=== PATIENT | male | born 2000 | race Caucasian/White ===

== ENCOUNTER 2021-12-07 14:51 | Emergency (ER) | payer OTHER, SELFPAY ==
[2021-12-07 15:20] VITALS: BP 148/81; PULSE 89; RESP 20; TEMP 36.1; O2SAT 100; BMI 38.0
--- NOTE | 2021-12-07 15:33 | CRLHL7_ITS ---
For Patients: As a result of the Cures Act, medical imaging exams and procedure reports are released immediately into your electronic medical record. You may view this report before your referring provider. If you have questions, please contact your health care provider. INDICATION: Right ankle injury. TECHNIQUE: Three views of the right ankle. COMPARISON: None. FINDINGS: There is no evidence of acute fracture or malalignment. The ankle mortise is intact. There is no significant soft tissue swelling. The joint spaces are preserved. No suspicious osseous lesion. IMPRESSION: No acute fracture. Dictated by Angela Self MD @ 12/07/2021 4:56:47 PM (Electronically Signed)
--- NOTE | 2021-12-07 16:19 | ED.GENADULT ---
HPI - General Adult General Chief complaint: Extremity Pain/Injury, Lower Stated complaint: Right leg/ankle injury Time Seen by Provider: 12/07/21 15:29 Source: patient Mode of arrival: ambulatory Limitations: no limitations History of Present Illness HPI narrative: 21-year-old male coming in today after injury in football. He states that he was blocking a another player when a 2nd player hit him from the side. His ankle rolled underneath him. He is having pain medially of the right ankle. Denies any other injury. Did not hit his head or lose consciousness. Related Data Home Medications Medication Instructions Recorded Confirmed No Known Home Medications 12/07/21 12/07/21 Allergies Allergy/AdvReac Type Severity Reaction Status Date / Time No Known Drug Allergies Allergy Verified 12/07/21 15:24 Review of Systems Status of ROS: Reports: 6 or more systems reviewed and unremarkable except as noted in History and below [facility] Social History Smoking Status: Never smoker Do you use any of these nicotine containing products: None Second hand tobacco smoke exposure: No How often do you have a drink containing alcohol: 4 or more times a week How many standard drinks containing alcohol do you have on a typical day: 1 or 2 AUDIT-C Alcohol total score: 4 Non-prescribed substance use: denies use Exam Narrative: Exam Narrative: Well-nourished well-developed patient in no acute distress. Alert and oriented. Answers questions appropriately. Mood and affect are appropriate. Thoughts are goal oriented and rational. No tangential or magical thinking noted. Patient speaks in full sentences without needing to catch his breath. HEENT: Normocephalic atraumatic. Pupils are equally round reactive to light. Extraocular muscles are intact. Conjunctivae are moist without any icterus noted. Extremities: Bilateral lower extremities are without edema. Normal DP and PT pulses. Skin: Well perfused without any obvious rashes. Const: Vital Signs, click to edit/add: Vital Signs - 24 hr 12/07/21 15:20 Temperature 96.9 F L Pulse Rate [Right Pulse Oximeter] 89 Respiratory Rate 20 Blood Pressure [Ri ght Upper Arm] 148/81 H Pulse Oximetry 100 Oxygen Delivery Me thod Room Air Course Course Hospital Course: Ankle x-rays were done, read by me, do not show any abnormalities. Vital Signs Vital signs: Initial Vital Signs Temperature 96.9 F L 12/07/21 15:20 Temperature Source Temporal Artery Scan 12/07/21 15:20 Pulse Rate 89 12/07/21 15:20 Respiratory Rate 20 12/07/21 15:20 Blood Pressure 148/81 H 12/07/21 15:20 Blood Pressure Mean 103 12/07/21 15:20 Blood Pressure Position Sitting 12/07/21 15:20 Pulse Oximetry 100 12/07/21 15:20 Oxygen Delivery Method 12/07/21 15:20 Vital Signs Temperature 96.9 F L 12/07/21 15:20 Pulse Rate 89 12/07/21 15:20 Respiratory Rate 20 12/07/21 15:20 Blood Pressure 148/81 H 12/07/21 15:20 Pulse Oximetry 100 12/07/21 15:20 Oxygen Delivery Method 12/07/21 15:20 Temperature 96.9 F L 12/07/21 15:20 Pulse Rate 89 12/07/21 15:20 Respiratory Rate 20 12/07/21 15:20 Blood Pressure 148/81 H 12/07/21 15:20 Pulse Oximetry 100 12/07/21 15:20 Oxygen Delivery Method 12/07/21 15:20 Medical Decision Making MDM Narrative Medical decision making narrative: Ankle sprain. We discussed symptomatic treatment reasons for follow-up. Discharge Plan Discharge Clinical Impression: Ankle sprain and strain Patient Disposition: Home, Self-Care Additional Instructions: Rest, elevate, ice as. Do not apply ice directly to skin. Okay to use ibuprofen Tylenol as needed for discomfort. Recommend you do not play football until ankle has completely healed. It is not improving over the next 4-5 days, follow-up with your primary care provider or Orthopedics. Prescriptions: No Action No Known Home Medications Stand Alone Forms: [employer] Info Instructions
== END 2021-12-07 16:35 | disposition home or self-care (01) ==
LOC: ED 16:42
PROVIDERS: Emergency Provider Family Medicine
DX: S93.401A Sprain of unspecified ligament of right ankle, initial encounter (principal); X50.1XXA Overexertion from prolonged static or awkward postures, initial encounter; Y93.61 Activity, american tackle football
CPT/HCPCS: 73610; 99283; 99284